=== PATIENT | male | born 1995 | race Two or more races ===

== ENCOUNTER 2020-05-24 15:14 | Emergency (ER) | payer MEDICAID ==
[~2020-05-24] VITALS: Ht 180.3 cm; Wt 83.9 kg
[2020-05-24 15:24] VITALS: BP 151/70
[2020-05-24] MEDS ORDERED: LIDOCAINE 1% HCL (LOCAL ANESTH.) INJ 20ML MDV ONE (15:35)
== END 2020-05-24 16:16 | disposition home or self-care (01) ==
LOC: ER 15:14
DX: S90.451A Superficial foreign body, right great toe, initial encounter (principal); L60.0 Ingrowing nail; X58.XXXA Exposure to other specified factors, initial encounter; Y93.89 Activity, other specified; Y92.89 Other specified places as the place of occurrence of the external cause; Y99.8 Other external cause status
CPT/HCPCS: 11730; 99284; J2001